=== PATIENT | male | born 1995 | race Caucasian/White ===

== ENCOUNTER 2017-06-06 16:49 | Emergency (ER) | payer SELFPAY ==
[~2017-06-06 16:49] MED LIST: CYCL10TA29 PO; HYDR-4309 PO; LOR5/325 PO; SULF-198 PO
--- NOTE | 2017-06-06 17:02 | ER Report ---
History and Physical Time Seen By MD: 17:01 Hx. of Stated Complaint: COUGH, FEELING JUST BAD, SORE THROAT IS THE WORST PROBLEM, STUFFED NOSE HPI/ROS CHIEF COMPLAINT: Sore throat HISTORY OF PRESENT ILLNESS: This is a 21-year-old male who presents to the emergency department for a sore throat. Patient states that he's had some upper respiratory symptoms, sore throat and a cough for the past couple of weeks progressively getting worse. Patient states then the last couple days he's had increased throat discomfort and has been not able to sleep due to his cough. Patient denies fevers, aches, chills, nausea, vomiting, diarrhea or headaches. REVIEW OF SYSTEMS: Constitutional: No fever, no chills. Eyes: No discharge. ENT: As above. Cardiovascular: No chest pain, no palpitations. Respiratory: No cough, no shortness of breath. Gastrointestinal: No abdominal pain, no vomiting. Genitourinary: No hematuria. Musculoskeletal: No back pain. Skin: No rashes. Neurological: No headache. Allergies: Coded Allergies: No Known Drug Allergies (Unverified , 06/06/17) Home Meds Active Scripts Prednisone (PREDNISONE) 20 Mg Tablet, 20 MG PO BID, #10 TAB Prov:JESSICA HENRY [facility] 06/06/17 Acetaminophen With Codeine # 3 (TYLENOL WITH CODEINE #3 TABLET) 1 Each Tablet, 1 EACH PO Q4-6H Y for prn, #10 TAB Prov:JESSICA HENRY [facility] 06/06/17 Albuterol Sulfate (VENTOLIN HFA) 18 Gm Inh, 2 PUFF INH Q4-6H Y for SHORTNESS OF BREATH, #1 INH Prov:JESSICA HENRY [facility] 06/06/17 Discontinued Scripts Hydrocodone Bit/Acetaminophen (HYDROCODON-ACETAMINOPHEN 5-325) 1 Each Tablet, 1 EACH PO Q4-6H Y for PAIN, #15 TAB Prov:VALE RICO DO 06/24/16 Past Medical/Surgical History She has a past medical and surgical history of left hip injury, left hand. Reviewed Nurses Notes: Yes Hx Smoking: No Smoking Status: Never Smoker Hx Substance Use Disorder: No Hx Alcohol Use: No Constitutional Vital Sign - Last 24 Hours 06/06/17 06/06/17 06/06/1706/06/18 16:49 16:53 16:54 17:00 Temp 98.2 Pulse ??? 105 Resp 18 B/P (MAP) 131/81 (98) 131/81 128/74 (92) Pulse Ox 93 O2 Delivery Room Air 06/06/17 06/06/17 06/06/17 06/06/17 17:04 17:19 17:30 17:34 Pulse 79 68 62 B/P (MAP) 110/64 (79) Pulse Ox 89 88 99 06/06/17 06/06/17 06/06/17 06/06/17 17:35 17:45 17:49 17:54 Pulse 77 87 82 65 Resp 12 12 Pulse Ox 90 90 06/06/17 06/06/17 06/06/17 06/06/17 18:00 18:24 18:30 18:39 Pulse 60 61 B/P (MAP) 115/48 (70) 115/62 (79) Pulse Ox 90 06/06/17 06/06/17 18:54 19:00 Pulse 78 B/P (MAP) 125/68 (87) Physical Exam General Appearance: The patient is alert, has no immediate need for airway protection and no signs of toxicity. Eyes: Pupils equal and round no pallor or injection. ENT, Mouth: Mucous membranes are moist. Erythema to the soft palate and posterior oropharynx. No exudate. TMs intact, landmarks noted, pearly no injection bilaterally. Respiratory: There are no retractions, lungs are clear to auscultation. Cardiovascular: Regular rate and rhythm, no murmurs, clicks or rubs. Gastrointestinal: Abdomen is soft and non tender, no masses, bowel sounds normal. Neurological: Alert and oriented 4. Moving all tremors. Following all commands. No focal neuro deficits. Skin: Warm and dry, no rashes. Musculoskeletal: Neck is supple non tender. Anterior cervical chain lymphadenopathy. Extremities are nontender, nonswollen and have full range of motion. DIFFERENTIAL DIAGNOSIS: After history and physical exam differential diagnosis was considered for viral syndrome, influenza, strep throat, bronchitis and pneumonia. Medical Decision Making Data Points Laboratory Hematology Test 06/06/17 16:55 Influenza Virus Type A (PCR) Negative (NEGATIVE) Influenza Virus Type B (PCR) Negative (NEGATIVE) Group A Streptococcus Screen Negative (NEGATIVE) Chemistry Test 06/06/17 16:55 Influenza Virus Type A (PCR) Negative (NEGATIVE) Influenza Virus Type B (PCR) Negative (NEGATIVE) Group A Streptococcus Screen Negative (NEGATIVE) EKG/Imaging Imaging Location: [facility] Patient: Will Beth : 1995 Visit/Account:[id number] Date of Sevice: 06/06/2017 Technique: CHEST PA AND LAT HISTORY: cough x2 wks COMPARISON: None available Findings: The lungs are clear. No pleural effusion or pneumothorax. The cardiomediastinal silhouette is unremarkable. Impression: 1. No acute cardiopulmonary process. Report Dictated By: Chapito Mendez DO at 06/06/2017 6:20 PM Report E-Signed By: Chapito Mendez DO at 06/06/2017 6:21 PM [id number] ED Course/Re-evaluation ED Course The patient was admitted to room. A history of disc or pain. Differential diagnoses were considered. Negative rapid strep, negative for influenza. Two- view chest x-ray negative for any acute cardio pulmonary process. A DuoNeb was given in the ED she did have some mild relief. I did review these results with the patient explaining to him that this is likely a viral type of illness. Patient was given a prescription for Tylenol with Codeine, albuterol inhaler, and a prednisone burst. I did tell the patient to follow up with his primary care provider if there is no improvement in 7-14 days or return to the emergency department for any concerns or worsening symptoms. Patient has no other questions or concerns at this time and was discharged home. Patient was in agreement with this plan of care. Decision to Disposition Date: Jun 06, 2017 Decision to Disposition Time: 18:58 Depart Departure Latest Vital Signs Vital Signs Date Time Temp Pulse Resp B/P (MAP) Pulse Ox O2 Delivery O2 Flow Rate FiO2 06/06/17 19:00 125/68 (87) 06/06/17 18:54 78 06/06/17 18:39 90 06/06/17 17:45 12 06/06/17 16:54 98.2 Room Air Impression: Primary Impression: Viral syndrome Additional Impression: Cough Condition: Improved Disposition: HOME OR SELF-CARE New Scripts Prednisone (PREDNISONE) 20 Mg Tablet 20 MG PO BID, #10 TAB Prov: JESSICA HENRYP-BC 06/06/17 Acetaminophen With Codeine # 3 (TYLENOL WITH CODEINE #3 TABLET) 1 Each Tablet 1 EACH PO Q4-6H Y for prn, #10 TAB Prov: JESSICA HENRYP-BC 06/06/17 Albuterol Sulfate (VENTOLIN HFA) 18 Gm Inh 2 PUFF INH Q4-6H Y for SHORTNESS OF BREATH, #1 INH Prov: JESSICA HENRY- 06/06/17 Patient Instructions: Acute Cough (ED), Viral Syndrome (ED) Additional Instructions: Drink plenty of water. Get plenty of rest. Take the medications as prescribed. If no improvement in 7-14 days follow-up with your primary care provider. May return to the ED for any other concerns or worsening symptoms. Problem Qualifiers JESSICA HENRY [employer]-[facility] Jun 06, 2017 17:01
[2017-06-06] MEDS ORDERED: ALBUTEROL/IPRATROPIUM 3 ML NEB NEB ONE (17:15)
[2017-06-06] MEDS ORDERED: ALBUTEROL/IPRATROPIUM 3 ML NEB ONE (17:28)
--- NOTE | 2017-06-06 18:25 | RADIOLOGY IMAGING REPORT ---
FACILITY: [facility] - [place] PATIENT NAME: Will Beth : 1995 MR: [id number] V: [id number] EXAM DATE: ORDERING PHYSICIAN: JESSICA HENRY TECHNOLOGIST: Location: [facility] [place] Patient: Will Beth : 1995 Visit/Account:[id number] Date of Sevice: 06/06/2017 Technique: CHEST PA AND LAT HISTORY: cough x2 wks COMPARISON: None available Findings: The lungs are clear. No pleural effusion or pneumothorax. The cardiomediastinal silhouett e is unremarkable. Impression: 1. No acute cardiopulmonary process. Report Dictated By: Chapito Mendez DO at 06/06/2017 6:20 PM Report E-Signed By: Chapito Mendez DO at 06/06/2017 6:21 PM WSN:[id number]
[2017-06-06 19:00] VITALS: BP 125/68
[2017-06-06] MEDS ORDERED: ALB18R INH (19:00)
[2017-06-06] MEDS ORDERED: ACET-3017 PO (19:00)
[2017-06-06] MEDS ORDERED: PRED20TA6 PO (19:00)
== END 2017-06-06 19:07 | disposition home or self-care (01) ==
LOC: ER 17:21
DX: B34.9 Viral infection, unspecified (principal)
CPT/HCPCS: 71046; 87081; 87502; 87880; 94640; 99282